=== PATIENT | female | born 1980 | race Caucasian/White ===

== ENCOUNTER 2017-01-01 20:57 | Emergency (ER) | payer MEDICAID ==
[~2017-01-01] VITALS: Ht 170.2 cm; Wt 81.0 kg
[2017-01-01 20:59] VITALS: Ht 170.2 cm; Wt 81.0 kg
[2017-01-01] MEDS ORDERED: KETOROLAC 30 MG INJ IM STA (22:31)
[2017-01-01] MEDS ORDERED: METOCLOPRAMIDE 10 MG INJ IM ONE (23:00)
[2017-01-01] MEDS ORDERED: DIPHENHYDRAMINE 50 MG INJ IM ONE (23:00)
[2017-01-01] MEDS ORDERED: HYDR-906 PO (23:02)
--- NOTE | 2017-01-01 23:02 | ERD ---
ER Documentation Chief Complaint Chief Complaint c/o head and neck pain x 2 days. HPI Otherwise healthy 36-year-old female presented with a chief complaint of headache 3 days. Pain described as 7 out of 10, bilateral, without aura. Denies fever, meningismus, sick contacts, abdominal pain, vomiting, change in vision or hearing. Denies thunderclap or worst headache of life. Has not taken any medications to relieve the symptoms. Patient has no other complaints and describes no other associated manifestations. ROS All systems reviewed and are negative except as per history of present illness. Medications Home Meds Active Scripts Hydrocodone/Acetaminophen ([place] 5-325 Tablet) 1 Each Tablet, 1 TAB PO Q6H Y for PAIN, #7 TAB Prov:GENET LOPEZ PA-C 01/01/17 Allergies Allergies: Coded Allergies: No Known Drug Allergies (Verified Allergy, Unknown, 06/19/08) PMhx/Soc Medical and Surgical Hx: pt denies Medical Hx, pt denies Surgical Hx History of Surgery: No Anesthesia Reaction: No Hx Neurological Disorder: No Hx Respiratory Disorders: No Hx Cardiac Disorders: No Hx Psychiatric Problems: No Hx Miscellaneous Medical Probl: No Hx Alcohol Use: No Hx Substance Use: No Hx Tobacco Use: No Smoking Status: Never smoker Physical Exam Vitals Vital Signs Date Time Temp Pulse Resp B/P Pulse Ox O2 Delivery O2 Flow Rate FiO2 01/01/17 20:59 98.1 83 18 144/93 97 Physical Exam Const: Healthy-appearing. Well-nourished. Well-developed. No acute distress. Head: Normocephalic, Atraumatic. Eyes: Non-injected; No discharge or foreign body. Ophthalmoscope exam unremarkable. EOMI and ANDREA bilaterally. No nystagmus. Neur: Awake, alert and oriented x3. Neurovascularly intact bilaterally. Psych: Normal Mood and Affect. Ears: Normal External Ears, EACs clear, TM normal bilaterally without erythema. Nose: Normal external nose; no discharge, septal deviation, or sinus tenderness. Oral: No oral edema visualized. Mucous membranes moist and pink. Neck: No cervical lymphadenopathy, masses or goiter palpated. Trachea midline. Full range of motion. Supple ~ No meningismus. Negative kernings and brudnizkis signs. Pulm: Good air movement in upper and lower respiratory tracts. No dyspnea, stridor, tripoding or drooling. Clear to auscultation bilaterally. Cardio: Regular rate and rhythm; No murmurs, gallops or rubs auscultated. No JVD grossly observed. Radial and posterior tibial pulses 2+ bilaterally. No cyanosis. Capillary refill less than 2 seconds. Abd: Soft, non tender, non distended. No guarding, masses. Normal bowel sounds. No McBurney's point tenderness. MS: Normal motor strength, normal tone with gross examination. Skin: No petechiae or rashes. No ulcer, induration, jaundice. Good turgor. Back: No midline, flank or CVA tenderness. Ext: No edema or palpable cord. Normal movement of all extremities grossly observed. Results 24 hrs Current Medications Medications (Trade) Dose Ordered Sig/[place] Route PRN Reason Start Time Stop Time Status Last Admin Dose Admin Metoclopramide HCl (Reglan) 10 mg ONCE ONCE IM 01/01/17 23:00 01/01/17 23:01 DC 01/01/17 22:59 Ketorolac Tromethamine (Toradol) 30 mg ONCE STAT IM 01/01/17 22:31 01/01/17 22:33 DC 01/01/17 22:59 Diphenhydramine HCl (Benadryl) 25 mg ONCE ONCE IM 01/01/17 23:00 01/01/17 23:01 DC 01/01/17 22:59 Procedures/MDM Patient was worked up and evaluated for headache as described in the history and physical examination. Patient was given 30 mg IM of Toradol, 10 mg IM of Reglan and 25 mg IM Benadryl with complete relief of symptoms. test was neg. There are no red flags to support brain CT evaluation. The current most likely diagnosis is tension-type headache versus migraine. Patient will be discharged with [place] for 3 days with instructions to follow-up with PCP and 2- 3 days. At this time, I have little suspicion for subarachnoid hemorrhage or other intracranial bleeds, meningitis, temporal arteritis, glaucoma, hypertensive urgency/emergency, cerebral ischemia, arterial dissection, brain abscess/tumor, pain secondary to trauma, septicemia. I have spoke with the patient regarding their condition and future management. They have verbally responded that they understand their status and treatment plan. The patients vitals are stable, and their current condition is appropriate for discharge. The patient will be given discharge instructions with return precautions. Departure Diagnosis: Primary Impression: Headache Headache type: tension-type Headache chronicity pattern: unspecified pattern Intractability: not intractable Qualified Code: G44.209 - Tension- type headache, not intractable, unspecified chronicity pattern Additional Instructions: Follow up with your PCP within the next 1-3 days for a more thorough evaluation and a possible referral to a specialist. Return the the emergency department immediately if symptoms worsen or change. If you have any questions regarding medications, ask your pharmacist or us before you leave. If any adverse reactions occur while taking your medications, discontinue the treatment and return to the emergency department immediately. Take your medications as directed, and complete the entire course of treatment. GENET LOPEZ PA-C Jan 01, 2017 23:02
[2017-01-01 23:11] VITALS: BP 108/71; PULSE 75; RESP 17
== END 2017-01-01 23:13 | disposition home or self-care (01) ==
LOC: FTE 20:57
DX: G44.209 Tension-type headache, unspecified, not intractable (principal)
CPT/HCPCS: 96372; J1200; J1885; J2765; Z7502